=== PATIENT | female | born 1955 | race Caucasian/White ===

== ENCOUNTER 2024-10-04 08:45 | Outpatient (REF) | payer OTHER, MEDICARE, SELFPAY | END 2024-10-04 08:46 | disposition home or self-care (01) | LOC: HO.HOSX 08:45 | PROVIDERS: Visit Provider Physician Assistant | DX: M25.561 Pain in right knee (principal); M25.562 Pain in left knee | CPT/HCPCS: 73560; 73562 ==

== ENCOUNTER 2024-10-04 08:57 | Outpatient (AMB) | payer OTHER, MEDICARE, SELFPAY ==
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
== END 2024-10-04 09:35 | disposition home or self-care (01) ==
PROVIDERS: PCP Physician Assistant; Visit Provider Physician Assistant
DX: M17.12 Unilateral primary osteoarthritis, left knee (principal)
CPT/HCPCS: 99203

== ENCOUNTER 2025-09-10 08:18 | Outpatient (AMB) | payer OTHER, MEDICARE, SELFPAY ==
--- NOTE | 2025-09-10 08:12 | A.PHYSOV ---
Vital Signs 09/10/25 08:18 Height 5 ft 2 in Weight 200 lb BMI 36.6 Intake Visit Reasons: Fibromyalgia Intake Note: Patient is a 70 year old female in office today for her fibromyalgia visit. 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 The patient has fibromyalgia with persistent pain in the neck and lower back, which is managed with Savella, and the patient reports the medication has been effective. Past medical history is significant for Achilles tendinitis, lateral epicondylitis, and chronic lower back pain. The patient's neck pain has previously improved with physical therapy and has been supplementing with turmeric. The patient received an injection for a left middle finger trigger finger on May 11, 2024, and another at the metacarpophalangeal joint on April 09, 2025, which has provided relief. For the past three months, the patient has experienced new onset knee pain, suspected to be arthritis. The patient uses a knee support, which is helpful, and has declined physical therapy for this issue. Pain Description - Reports persistent pain in the neck and lower back due to fibromyalgia. - Reports new onset of significant knee pain for the past three months. - Use of a knee support provides some relief. Results [facility] Medical History (Updated 09/10/25 @ 12:17 by Kiko Monroe DO) Right knee DJD Fibromyalgia Surgical History (Updated 09/10/25 @ 08:20 by Laxmi Ayala MA) History of cholecystectomy (Unknown) Social History (Updated 09/10/25 @ 08:22 by Laxmi Ayala MA) Household Members: Spouse Alcohol intake: never Patient Tobacco Use Status: Never used Tobacco Review of Systems Narrative Review of Systems - Musculoskeletal: Reports persistent pain in the neck and lower back. - Musculoskeletal: Reports new onset knee pain for the last 3 months. - Musculoskeletal: Reports improvement in left middle finger pain post-injection. Physical Exam Exam Exam: Physical Exam Patient appears to be in no acute distress. She was able to ambulates without antalgia. Diffuse myofascial tenderness with palpation. Cervical range of motion was restricted in extension. Lumbar range of motion was restricted in extension and side bending. Dural tension signs were negative. Neurological examination of upper and lower extremities was nonfocal. Patient demonstrated no upper motor neuron signs. Examination of the right knee reveals tenderness with palpation over medial joint line. No effusion, no instability. Vital Signs: BMI result Body Mass Index 36.6 Office Procedures AMB Knee Injection AMB Knee Injection Procedure Details: With patient in sitting position medial aspect of the right knee was prepped with Betadine. 1.5 inch 25 gauge hypodermic needle was introduced percutaneously and advanced into the joint. After negative aspiration for blood to the volume of 4 cc containing 40 mg of triamcinolone and 2% lidocaine was injected without resistance. Patient tolerated procedure very well without complications with excellent anesthetic response. Knee Injection - : Right All charges added?: Procedure code (CPT) selection complete Office Meds Kenalog 40 mg/mL suspension for injection Performing Provider: Kiko Monroe DO Performing Location: [facility] Administered by: Kiko Monroe DO on 09/10/25 08:46 Dose Route Admin Location Dispensed Lot Number Expiration Date [facility] [place]NOTE 2] Wet Press Tender 40 mg intra-articular 1 mL [id number] [employer] Total Dispensed Waste 1 mL 0 % lidocaine (PF) 20 mg/mL (2 %) injection solution Performing Provider: Kiko Monroe DO Performing Location: [facility] Administered by: Kiko Monroe DO on 09/10/25 08:46 Dose Route Admin Location Dispensed Lot Number Expiration Date [facility] [place]NOTE 2] Wet Press Tender 40 mg intra-articular 5 mL [id number] [employer]AR Total Dispensed Waste 5 mL 60 % Assessment & Plan Assessment & Plan (1) Fibromyalgia: Code(s): M79.7 - Fibromyalgia Category: Medical (2) Right knee DJD: Code(s): M17.11 - Unilateral primary osteoarthritis, right knee Category: Medical Qualifiers: Osteoarthritis type: primary Qualified Code(s): M17.11 - Unilateral primary osteoarthritis, right knee Plan Pain Management - Analgesia: The patient is on Savella for fibromyalgia, which has been effective. - Analgesia: The patient uses turmeric as a supplement. - Analgesia: Prior injections for a left middle finger trigger finger have provided relief. - Activities of Daily Living: The patient uses a knee support for work. Plan Patient was informed and verbally consented to the use of an ambient scribe for clinic note documentation during this visit. 1. Fibromyalgia The patient reports persistent neck and lower back pain, but the condition is considered stable with the current medication regimen. Continue current management with Savella as it has been effective. 2. Right Knee Pain The patient presents with new onset right knee pain for the past three months, suspected to be arthritis. The patient declined physical therapy and requested an injection. After discussion and obtaining consent, a corticosteroid injection was administered to the right knee. 3. Trigger Finger Of Left Middle Finger The patient's left middle finger trigger finger has improved following a previous injection. No acute intervention is planned at this visit; will continue to monitor. Risks and benefits of the procedure were discussed with the patient. Potential alternative measures were also discussed. Patient understands that the procedure is completely elective. Potential side effects associated with injectable medications were discussed. All questions were answered to the patient's satisfaction. Discussion Notes I discussed the management of the patient's new knee pain. The patient declined physical therapy and expressed a preference for a steroid injection, which I agreed to perform. I obtained informed consent from the patient before proceeding with the injection for the right knee. Patient Instructions - You received an injection in your right knee for pain today. - Continue taking your Savella medication as you have been for your fibromyalgia. - You can continue to use a support brace on your knee. Orders: Orders AMB Knee Injection Today M17.11 - Unilateral primary osteoarthritis, right knee Medications: Changed From lidocaine 5% topical M79.7 - Fibromyalgia To lidocaine 5% Apply 12 hours on 12 hours off daily may use up to 3 patches at the time 3 patches topical Q24H 90 ea 11RF M79.7 - Fibromyalgia Coding Level of Care Code Est Pt Level 4 (83256) Complex visit Add On G2211 Diagnoses Fibromyalgia M79.7 Primary osteoarthritis of right knee M17.11 Osteoarthritis type: primary CPT Codes AMB Knee Injection - Hip/Bursa Injection - : Right ([id number])
[2025-09-10 08:18] VITALS: BMI 36.6
--- OUTSIDE RECORDS SUMMARY | 2025-09-10 08:38 | XMS_ITS | Clinical Summary ---
Author Organization [facility] Address [address] [place] [address] Phone Care Team Providers Care Food Service Director Name Role Phone Arlene Leonard Primary Care Provider [phone] Allergies Active Allergy Reactions Criticality Noted Date Comments Penicillins Swelling High 03/31/2016 Swelling mouth Medications fluticasone propionate (FLONASE) 50 mcg/actuation nasal spray Administer 1 spray into each nostril 1 (one) time each day for 5 days. Shake gently. Before first use, prime pump. After use, clean tip and replace cap. 16 g 5 Active psyllium packet Take by mouth daily. Active dexamethasone sodium phosp/PF (dexAMETHasone sodium phos, PF,) 4 mg/mL solution Applied to use with TENS patches In physical therapy twice a week 1 Active aspirin (Adult Low Dose Aspirin) 81 mg EC tablet Route: Take 81 mg by mouth daily. - Oral 4 Active cholecalciferol (VITAMIN D-3) 50 mcg (2,000 unit) capsule Take 1 capsule (2,000 Units total) by mouth 1 (one) time each day. Active esomeprazole (NexIUM) [address] capsule Take 20 mg by mouth every morning (before breakfast). Prn 8 Active cyclobenzaprine (FLEXERIL) 10 mg tablet - Route: Take 10 mg by mouth 3 times daily as needed. - Oral Active polyethylene glycol (MIRALAX) 17 gram packet - Route: Take by mouth. Daily - Oral 3 Active omega-3 (FISH OIL) 360-1,200 mg capsule Take 3 capsules (3,600 mg total) by mouth 2 (two) times a day. 0 Active rosuvastatin (CRESTOR) 5 mg tablet : 1 Tab at bedtime 8 Active HYDROcodone-zenia taminophen (NORCO) 5-325 mg per tablet 1 tablet 4 times daily as needed. 6 Active albuterol HFA (ProAir HFA) 90 mcg/actuation inhaler 1 Puff 4 times daily as needed. 3 Active ketoconazole (NIZORAL) 2 % cream Apply topically 1 (one) time each day. 30 g 2 5 Active Active Problems Problem Noted Date Diagnosed Date Thyroid nodule 12/17/2024 SOBOE (shortness of breath on exertion) 10/19/19 22 Anxiety and depression 03/18/2019 Carpal tunnel syndrome 03/18/2019 GERD (gastroesophageal reflux disease) 9 Hyperlipidemia 03/18/2019 DDD (degenerative disc disease), lumbosacral Overview (12/17/2024): Lumbar herniated disc, facet arthropathy w/ low back pain. Radiculitis, lumbosacral 01/10/2011 Fibromyalgia 08/16/2006 Overview (12/17/2024): Dx by [facility] MRI Discogenic Degenerative changes L4 L5 + L5 s1 Immunizations Immunization Administration Dates Next Due Pfizer SARS-CoV-2 COVID-19, mRNA, LNP-S, preservative free 03/01/2021 Tdap Tetanus diptheria acell ular pertussis (Boostrix; Adacel) 7yo and older 02/05/2009 Zoster Live 06/11/2017 Surgical History Surgery Date Site/Laterality Comments OTHER SURGICAL HISTORY PROCEDURE: ME RADIAL KERATOTOMY Medical History Medical History Date Comments GERD (gastroesophageal reflux disease) 03/18/2019 DX:GERD (gastroesophageal reflux disease) Glaucoma, left eye 01/18/2016 DX:Glaucoma, left eye Thyroid nodule 03/18/2019 DX:Thyroid nodul e; COMMENT: US 12/16/15: Stable small R thyroid nodules without suspicious features (previous scans 12/14/2000, 04/2010, 03/29/12- no changes) Anxiety and depression 03/18/2019 DX:Anxiet y and depression Carpal tunnel syndrome 03/18/2019 DX:Carpal tunnel syndrome DDD (degenerative disc disea se), lumbosacral 03/08/2011 DX:DDD (degenerative disc di sease), lumbosacral; COMMENT: Lumbar herniated disc, facet arthropathy w/ low back pain. Fibromyalgia 12/30/2009 DX:Fibromyalgia Hyperlipidemia 03/18/2019 DX:Hyperlipidemi a Radiculitis, lumbosacral 01/10/2011 DX:Radi culitis, lumbosacral Hyperlipidemia 03/18/2019 Thyroid nodule 12/17/2024 Family History Medical History Relation Name Comments Autoimmune disease Neg Hx Blindness Neg Hx Breast cancer Neg Hx Cataracts Neg Hx Colon cancer Neg Hx Coronary artery disease Neg Hx Diabetes Neg Hx Glaucoma Neg Hx Heart attack Neg Hx Heart failure Neg Hx Hyperlipidemia Neg Hx Hypertension Neg Hx Macular degeneration Neg Hx Mental illness Neg Hx Prostate cancer Neg Hx Sleep apnea Neg Hx Strabismus Neg Hx Thyroid disease Neg Hx Social History Tobacco Use Types Packs/Day Years Used Date Smoking Tobacco: Never Smokeless Tobacco: Never Alcohol Use Standard Drinks/Week Comments No 0 (1 standard drink = 0.6 oz pur e alcohol) Comments No Sex and Gender Information Value Date Recorded Sex Assigned at Female 09/24/2024 2:13 PM EST Legal Sex Female 2:32 PM EST Gender Identity Female 09/24/2024 2:13 PM EST Sexual Orientation Straight 09/24/2024 2: 13 PM EST Obstetrics History Last Filed Vital Signs Vital Sign Reading Time Taken Comments Blood Pressure 130/87 11/12/2024 3:09 PM EST Pulse 88 11/12/2024 3:09 PM EST Temperature 37.1 C (98.8 F) 11/12/2024 3:09 PM EST Respiratory Rate 20 11/12/2024 3:09 PM EST Oxygen Saturation 98% 11/12/2024 3:09 PM EST Inhaled Oxygen Concentration - - Weight 89.8 kg (198 lb) 02/10/2025 2:10 PM EDT Height 157.5 cm (5' 2 ) 02/10/2025 2:10 PM EDT Body Mass Index 36.21 02/10/2025 2:10 PM EDT Plan of Treatment Health Maintenance Due Date Last Done Comments Colorectal Cancer Screening: Colonoscopy 1957 RSV Immunization Adult Patients (1 - Risk 50-74 years 1-dose series) 2007 Zoster Vaccines (2 of 3) 08/06/2017 06/11/2017 Falls Risk Assessment 09/14/2022 Medicare Annual Wellness Visit 09/14/2022 Osteoporosis Screening (Bone Density Screening) 09/14/2022 Social Influencers of Health Screening 09/14/2022 Depression Screening 10/16/2024 COVID-19 Vaccine (3 - season) 2025 03/22/2021, 03/01/2021 Influenza Vaccine (#1) 2025 , 08/18/2023, 08/05/2021, Additional history exists Breast Cancer Screening 10/11/2026 10/11/20 24, 10/11/2024, 09/06/2023, Additional history exists Cholesterol Screening (Lipid Panel) 10/22/2029 10/22/2024, 10/22/2024, 12/20/2023, Additional history exists DTaP,Tdap,and Td Vaccines (3 - Td or Tdap) 12/19/2033 12/20/2023, 02/05/2009 Hepatitis C Screening Completed 09/10/2018, 018 Pneumococcal Vaccine: 50+ Years Completed 12/16/2022 HIB Vaccines Aged Out No longer eligi ble based on patient's age to complete this topic HPV Vaccines Aged Out No longer eligi ble based on patient's age to complete this topic Hepatitis A Vaccines Aged Out No long er eligible based on patient's age to complete this topic Hepatitis B Vaccines Aged Out No long er eligible based on patient's age to complete this topic IPV Vaccines Aged Out No longer eligi ble based on patient's age to complete this topic MMR Vaccines Aged Out No longer eligi ble based on patient's age to complete this topic Meningococcal ACWY Vaccine Aged Out N o longer eligible based on patient's age to complete this topic Meningococcal B Vaccine Aged Out No l onger eligible based on patient's age to complete this topic RSV Immunization Patients Under 20 months Aged Out No longer eligible based on patient's age to complete this topic Varicella Vaccines Aged Out No longer eligible based on patient's age to complete this topic Procedures Procedure Name Priority Date/Time Associated Diagnosis Comments MG MAMMO DIGITAL SCREENING W RUIZ BILAT Routine 10/11/2024 1:32 PM EST Encounter for screening mammogram for breast cancer LIPID PANEL Routine 12/16/2022 from Last 3 Months or Most Recently Relevant to Health Maintenance Results * MG Mammo Digital Screening w Ruiz bilat (10/11/2024 1:32 PM EST) Anatomical Region Laterality Modality Breast Bilateral Mammography 10/14/2024 7:58 AM EST Impressions 10/14/2024 8:03 AM EST No mammographic evidence of malignancy. A negative mammogram in the presence of a clinically suspicious palpable abnormality does not preclude the possibility of malignancy or alter the indications for biopsy. PQRI CPT II 3341F Code 18056, 53038 PQRI 225 CPT II 7025F TISSUE DENSITY: The breasts are almost entirely fatty. (BI-RADS Category A) IMPRESSION: Benign. BI-RADS CATEGORY: 1 - NEGATIVE RECOMMENDATION: Screening bilateral mammogram is recommended in 1 year. Mammo Location: [facility], [address] [place] [address] -------- FINAL REPORT -------- Dictated By: Elier Pettit Dictated Date: 10/14/2024 07:58 ET Assigned Physician: Elier Pettit Reviewed and Electronically Signed By: Elier Pettit Signed Date: 10/14/2024 08:03 ET Workstation ID: [id number] Transcribed By: Self Edit Transcribed Date: 10/14/2024 07:58 ET Narrative 10/14/2024 8:03 AM EST CLINICAL: The patient is a 69 years Female presenting for routine screening mammography. COMPARISON: Most recently 09/06/2023 and most remotely 06/08/2018. TECHNIQUE: Full-field digital mammography of the breasts bilaterally consisting of tomosynthesis in MLO and CC projection is performed in the [employer] 2000-D unit. Computer aided detection utilizing the iCAD system was utilized. FINDINGS: The breasts are again seen to be largely fatty replaced. There is no cluster of microcalcifications, mass, or area of architectural distortion. There is no skin thickening or nipple retraction. Procedure Note Elier Pettit MD - 10/14/2024 CLINICAL: The patient is a 69 years Female presenting for routinescreening mammography. COMPARISON: Most recently 09/06/2023 and most remotely 06/08/2018. TECHNIQUE: Full-field digital mammography of the breasts bilaterallyconsisting of tomosynthesis in MLO and CC projection is performed in the[employer] 2000-D unit. Computer aided detection utilizing the Marketceteraystem was utilized. FINDINGS: The breasts are again seen to be largely fatty replaced. Thereis no cluster of microcalcifications, mass, or area of architecturaldistortion. There is no skin thickening or nipple retraction. IMPRESSION: No mammographic evidence of malignancy. A negative mammogram in the presence of a clinically suspicious palpableabnormality does not preclude the possibility of malignancy or alter theindications for biopsy. PQRI CPT II 3341F Code 11770, 68336 PQRI 225 CPT II 7025F TISSUE DENSITY: The breasts are almost entirely fatty. (BI-RADS CategoryA) IMPRESSION: Benign. BI-RADS CATEGORY: 1 - NEGATIVE RECOMMENDATION: Screening bilateral mammogram is recommended in 1 year. Mammo Location: [facility], [facility], [address] [place] [id number] -------- FINAL REPORT -------- Dictated By: Elier Pettit Dictated Date: 10/14/2024 07:58 ET Assigned Physician: Elier Pettit Reviewed and Electronically Signed By: Elier Pettit Signed Date: 10/14/2024 08:03 ET Workstation ID: [id number] Transcribed By: Self Edit Transcribed Date: 10/14/2024 07:58 ET us Self Referral Sppl IMG BI PROCEDURES Final Resul t * Lipid panel (12/16/2022) LDL/HDL Ratio 0 Comment:no interpretation, a bstracted Triglycerides 0 mg/dL Comment:no interpretation, a bstracted Cholesterol 0 mg/dL Comment:no interpretation, a bstracted HDL 0 mg/dL Comment:no interpretation, a bstracted LDL Cholesterol 0 mg/dL Comment:no interpretation, a bstracted Blood Venous blood specimen / Unknown us Historical Provider LAB BLOOD ORDERABLES Melanie l Result from Last 3 Months or Most Recently Relevant to Health Maintenance Insurance MEDICAID - [place] MEDICARE Advance Directives Documents on File Type Date Recorded 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 Expl anation Health Care Decision (hx) 02/10/2016 AD VÁSQUEZ DIRECTIVE Health Care Decision (hx) 02/10/2016 AD VÁSQUEZ DIRECTIVE Health Care Decision (hx) 02/10/2016 AD VÁSQUEZ DIRECTIVE Health Care Decision (hx) 02/10/2016 AD VÁSQUEZ DIRECTIVE Health Care Decision (hx) 02/10/2016 AD VÁSQUEZ DIRECTIVE Health Care Decision (hx) 02/10/2016 AD VÁSQUEZ DIRECTIVE Health Care Decision (hx) 02/10/2016 AD VÁSQUEZ DIRECTIVE Health Care Decision (hx) 02/10/2016 AD VÁSQUEZ DIRECTIVE Health Care Decision (hx) 02/10/2016 AD VÁSQUEZ DIRECTIVE Health Care Decision (hx) 02/10/2016 AD VÁSQUEZ DIRECTIVE Health Care Decision (hx) 02/10/2016 AD VÁSQUEZ DIRECTIVE Health Care Decision (hx) 02/10/2016 AD VÁSQUEZ DIRECTIVE Health Care Decision (hx) 02/10/2016 AD VÁSQUEZ DIRECTIVE Care Teams Food Service Director Relationship Specialty Start Date End Date Arlene Leonard PA [facility] [place] [address] PCP - General Internal Medicine 07/11/19
== END 2025-09-10 08:54 | disposition home or self-care (01) ==
PROVIDERS: PCP Physician Assistant; Visit Provider Physical Medicine & Rehabilitation
DX: M79.7 Fibromyalgia (principal); M17.11 Unilateral primary osteoarthritis, right knee
CPT/HCPCS: 20610; 99214

== ENCOUNTER → 2025-09-10 08:18 | Outpatient (BNVA) | payer OTHER, MEDICARE, SELFPAY | PROVIDERS: PCP Physician Assistant; Visit Provider Physical Medicine & Rehabilitation | DX: M17.11 Unilateral primary osteoarthritis, right knee (principal); M79.7 Fibromyalgia | CPT/HCPCS: 20610; J2003; J3301 ==